=== PATIENT | female | born 1970 | race Caucasian/White ===

== ENCOUNTER 2017-06-09 18:54 | Emergency (ER) | payer MEDICAID ==
[~2017-06-09] VITALS: Ht 160 cm; Wt 57.6 kg
[2017-06-09 19:35] VITALS: Ht 160 cm; Wt 57.6 kg
[2017-06-10 00:25] VITALS: BP 110/64
== END 2017-06-10 00:25 | disposition home or self-care (01) ==
LOC: ED 18:54
DX: L21.8 Other seborrheic dermatitis (principal)

== ENCOUNTER 2019-02-22 11:07 | Emergency (ER) | payer MEDICAID ==
[~2019-02-22] VITALS: Ht 160 cm; Wt 59.9 kg
[2019-02-22 11:19] VITALS: BP 116/63; Ht 160 cm; Wt 59.9 kg
== END 2019-02-22 12:15 | disposition home or self-care (01) ==
LOC: ED 11:07
DX: B35.0 Tinea barbae and tinea capitis (principal); L82.1 Other seborrheic keratosis